=== PATIENT | female | born 1990 | race Caucasian/White ===

== ENCOUNTER 2021-11-15 17:11 | Inpatient (IN) | payer OTHER ==
[2021-11-15] MEDS ORDERED: LOPERAMIDE HCL 2 MG CAPSULE PO PRN (17:45)
[2021-11-15] MEDS ORDERED: MAGNESIUM HYDROX 2400MG/30ML ORAL SUSPENSION 30 ML CUP PO PRN (17:45)
[2021-11-15] MEDS ORDERED: MAG HYDROX/AL HYDROX/SIMETH 30 ML UNIT-DOSE CUP PO PRN (17:45)
[2021-11-15] MEDS ORDERED: guaiFENesin 200 MG/10 ML 10 ML UNIT-DOSE CUPS PO PRN (17:45)
[2021-11-15] MEDS ORDERED: MAGNESIUM CITRATE 300 ML BOTTLE PO PRN (17:45)
[2021-11-15] MEDS ORDERED: P-EPHED 60MG/TRIPROLIDI 2.5MG TABLET PO PRN (17:45)
[2021-11-15] MEDS ORDERED: ACETAMINOPHEN 325 MG TABLET (FP) PO PRN (17:45)
[2021-11-15] MEDS ORDERED: NICOTINE 10 MG CARTRIDGE (INHALER) IH PRN (17:45)
[2021-11-15] MEDS ORDERED: IBUPROFEN 400 MG TABLET (FP) PO PRN (17:45)
[2021-11-15 17:59] VITALS: BMI 24.2
[2021-11-15] MEDS ORDERED: [UNRECOGNIZED DRUG - OTHER] MC PRN (19:37)
[2021-11-15] MEDS ORDERED: POLYETHYLENE GLYCOL MC PRN (19:37)
[2021-11-15] MEDS: NICOTINE 14 MG/24 HOURS TOPICAL PATCH TD SCH (20:16)
[2021-11-15] MEDS: PRENATAL VITAMINS W/ FOLIC ACID TABLET (FP) PO SCH (20:16)
[2021-11-15] MEDS: hydrOXYzine PAMOATE 25 MG CAPSULE (FP) PO SCH ×2 (20:16→21:39)
[2021-11-15] MEDS: THIAMINE HCL 100 MG TABLET (FP) PO SCH (21:39)
[2021-11-15] MEDS: RAMELTEON 8 MG TABLET PO SCH (21:40)
[2021-11-15] MEDS: SENNOSIDES 8.6MG TABLET (FP) PO SCH (21:40)
[2021-11-15] MEDS: SUCRALFATE 1 GM/10 ML UNIT DOSE CUPS PO SCH (21:40)
[2021-11-15] MEDS ORDERED: MELATONIN 5 MG TABLETS PO SCH (22:00)
[2021-11-16] MEDS: hydrOXYzine PAMOATE 25 MG CAPSULE (FP) PO SCH ×5 (06:04→22:15)
[2021-11-16 06:58] VITALS: BP 108/51; PULSE 56; TEMP 97.2
[2021-11-16] MEDS: SUCRALFATE 1 GM/10 ML UNIT DOSE CUPS PO SCH ×4 (09:52→22:16)
[2021-11-16] MEDS: NICOTINE 14 MG/24 HOURS TOPICAL PATCH TD SCH (09:52)
[2021-11-16] MEDS: PRENATAL VITAMINS W/ FOLIC ACID TABLET (FP) PO SCH (09:52)
[2021-11-16] MEDS ORDERED: FAMOTIDINE 20 MG TABLET PO SCH (10:00)
[2021-11-16] MEDS ORDERED: POLYETHYLENE GLYCOL 3350 119 GM BTL PO PRN (10:05)
[2021-11-16 11:22] LABS: ALBUMIN 3.3 g/dl (3.4-5.0); BLOOD UREA NITROGEN 13.7 mg/dL (7-18); CALCIUM 9.1 mg/dL (8.5-10.1); HEMATOCRIT 33.2 % (32.4-45.2); HEMOGLOBIN 11.3 GM/dL (10.7-15.3); MCH 31.2 pg (25.7-33.7); MCHC 34.1 g/dl (32.0-36.0); MEAN CELL VOLUME 91.6 fl (80-96); MEAN PLT VOLUME 9.4 fl (7.5-11.1); PLATELET COUNT 341 10^3/uL (134-434); RBC 3.62 M/mm3 (3.60-5.2); RDW 17.3 % (11.6-15.6); WHITE BLOOD COUNT 7.9 K/mm3 (4.0-10.0)
[2021-11-16 11:25] LABS: CREATININE 0.9 mg/dL (0.55-1.3)
[2021-11-16 11:26] LABS: BILIRUBIN,TOTAL 6.4 mg/dL (0.2-1); TOT PROT 7.5 g/dl (6.4-8.2)
[2021-11-16 11:37] LABS: SYPHILIS W/ RPR CONF NON-REACTIVE (NONREACTIVE)
[2021-11-16] MEDS ORDERED: BACLOFEN 10 MG TABLET (FP) PO PRN (12:01)
[2021-11-16] MEDS: SENNOSIDES 8.6MG TABLET (FP) PO SCH (22:14)
[2021-11-16] MEDS: THIAMINE HCL 100 MG TABLET (FP) PO SCH (22:15)
[2021-11-16] MEDS: RAMELTEON 8 MG TABLET PO SCH (22:15)
== END 2021-11-16 22:32 | disposition left against medical advice (07) | DRG 770 ==
LOC: YASAS 17:11 → Y5N 17:59
PROVIDERS: ADMIT Allergy & Immunology; ATTEND Allergy & Immunology
PROC: HZ2ZZZZ Detoxification Services for Substance Abuse Treatment (ICD-10-PCS; principal; 2021-11-15)
DX: F14.20 Cocaine dependence, uncomplicated (principal); F17.210 Nicotine dependence, cigarettes, uncomplicated; F19.24 Other psychoactive substance dependence with psychoactive substance-induced mood disorder; F43.10 Post-traumatic stress disorder, unspecified; K21.9 Gastro-esophageal reflux disease without esophagitis; K72.10 Chronic hepatic failure without coma; Z62.810 Personal history of physical and sexual abuse in childhood; Z91.410 Personal history of adult physical and sexual abuse
CPT/HCPCS: 36415; 80053; 85027; 86780; 86803; 93005; 93010; J0475